=== PATIENT | male | born 1985 | race Caucasian/White ===

== ENCOUNTER → 2018-08-22 | Emergency (ER) | payer SELFPAY ==
[2018-08-22] MEDS: ACETAMINOPHEN 500 MG TAB PO (14:29)
[2018-08-22] MEDS: ONDANSETRON (ODT) 4 MG TAB ODT (14:29)
== END | disposition home or self-care (01) ==
LOC: FTE 12:42
DX: G47.00 Insomnia, unspecified (principal); R11.0 Nausea
CPT/HCPCS: 82962; 87400; 99283